=== PATIENT | male | born 2000 | race Caucasian/White ===

== ENCOUNTER 2022-02-16 09:57 | Inpatient (IN) ==
[2022-02-16 11:04] LABS: Appearance Urine Clear (Clear); Bilirubin Urine Negative (Negative); Blood Urine Negative (Negative); Color Urine Yellow; Glucose Urine UA Negative (Negative); Ketones Urine Negative (Negative); Leukocyte Esterase Urine Negative (Negative); Nitrite Urine Negative (Negative); Protein Urine Negative (Negative); Specific Gravity Urine >= 1.030 (1.000-1.030); Urobilinogen Urine Negative (Negative)
[2022-02-16 11:29] LABS: Amphetamines+Metham, Urine Neg (Neg); Barbiturates, Urine Neg (Neg); Benzodiazepine, Urine Neg (Neg); Cocaine, Urine Neg (Neg); MDMA (Ecstacy), Urine Neg (Neg); Methadone, Urine Neg (Neg); Opiate, Urine Neg (Neg); Phencyclidine, Urine Neg (Neg)
[2022-02-16 11:35] LABS: Basophils # (auto) 0.02 K/uL (0-0.2); Basophils % (auto) 0.3 %; Eosinophils % (auto) 1.5 %; Hematocrit (blood only) 43.8 % (42-52); Hemoglobin 15.4 g/dL (14.0-18.0); Immature Granulocytes # (auto) 0.03 K/uL (0.00-0.02); Immature Granulocytes % (auto) 0.4 %; Lymphocytes # (auto) 1.52 K/uL (1.2-3.4); Lymphocytes % (auto) 22.3 %; Mean Corpuscular Hemoglobin 31.1 pg (25-34); Mean Corpuscular Hgb Conc 35.2 g/dL (32-36); Mean Corpuscular Volume 88.5 fL (80-100); Mean Platelet Volume 10.7 fL (7.4-10.4); Monocytes # (auto) 0.65 K/uL (0.11-0.59); Monocytes % (auto) 9.5 %; Neutrophils # (auto) 4.51 K/uL (1.4-6.5); Platelet Count 199 K/uL (130-400); RDW Coefficient of Variation 12.7 % (11.5-14.5); RDW Standard Deviation 40.7 fL (36.4-46.3); Red Blood Count 4.95 M/uL (4.7-6.1); White Blood Count 6.83 K/uL (4.8-10.8)
[2022-02-16 11:54] LABS: Albumin Globulin Ratio 1.8 (0.9-2); Albumin Level 4.2 gm/dl (3.4-5.0); Bilirubin,Total 0.9 mg/dl (0.2-1.0); Est GFR (African American) 144.7 ml/min; Est GFR (Non-African American) 124.8 ml/min; Globulin 2.4 gm/dl (2.5-4.0); Potassium 3.5 mmol/L (3.5-5.1); Total Protein 6.6 gm/dl (6.0-8.3)
[2022-02-16 12:01] LABS: Acetaminophen < 3 ug/ml (10-30); Salicylate < 3.0 mg/dl (3.0-30)
--- NOTE | 2022-02-16 12:06 | Emergency Department Note ---
Impression & Plan Suicidal ideation ED Provider Note CHIEF COMPLAINT: Suicidal ideation HISTORY OF PRESENT ILLNESS: This 21-year-old male patient presents to the emergency department with complaints of suicidal ideation after being in a counseling appointment at [facility]. Patient apparently has been struggling for several months while at college. He states he has been having thoughts of jumping off of the balcony from his apartment and/or slicing his throat with a kitchen knife. He states about 1 week ago he stood over the drawer and contemplated the action, feeling "numb all over" but received a notification on his phone which caused a distraction. The patient then contacted his friend and spoke with him for over 2 hours. The next day the patient states he watched TV and playing video games for about 8 hours. He states he had to fight the urge to walk out onto the balcony and attempt to jump. His [facility] who then referred him to [facility] for further care. Today he was directed here with [employer], but voluntarily. She denies ever seeing a psychiatrist past. He has never been on any prescription medications. REVIEW OF SYSTEMS: A review of systems was performed with positives and pertinent negatives listed in the history of present illness. 10 systems were reviewed and are otherwise negative. ALLERGIES: see below MEDICATIONS: see below PMH: see below SOCIAL HISTORY: see below DDx: Mood disorder, infection, hypoglycemia, electrolyte abnormalities, cardiac sources, intracerebral event, toxicologic, trauma, neurologic, as well as other pathologies. PHYSICAL EXAM: Vital signs reviewed. General: Well-appearing 21 yo male, in no significant distress. HEENT: No scleral icterus, PERRLA, neck supple. Atraumatic. Cardiovascular: Regular rate and rhythm, no extra sounds. Pulmonary: Clear to auscultation bilaterally, normal work of breathing. Abdomen: Soft, nontender, nondistended, positive bowel sounds. Musculoskeletal: Atraumatic, no peripheral edema. Neurologic: Patient awake alert and oriented x 3 Psych: +SI with plan/- HI Skin: Warm, dry, no rash EMERGENCY DEPARTMENT COURSE/MDM: This patient was evaluated and medically c leared. He was referred to the mental health immigration case worker for psychiatric assessment. Patient was felt to be a danger to himself and was voluntary for psychiatric admission. He was accepted to [facility] for inpatient admission. DISPOSITION: Admission Past Med/Surg History Medical History (Updated 02/17/22 @ 08:59 by Fernanda Pizano MD) Patient denies medical problems Social History (Updated 02/16/22 @ 12:52 by Fernanda Pizano MD) Smoking Status: Never smoker Hx Alcohol Use: Yes Alcohol Intake Frequency: 2-4 x/Month Hx Substance Use: Yes Prescribed Medications: Marijuana Preferred Language: Serbian [employer] Required: No Beliefs That Will Affect Care: None Feels Safe at Home: Yes Assistive Devices: None Allergies Allergies Allergy/AdvReac Type Severity Reaction Status Date / Time No Known Allergies Allergy Unverified 02/16/22 10:36 Home Meds Home Medications Medication Instructions Recorded Confirmed No Known Home Medications 02/16/22 02/16/22 Results & Data (ED) Vital Signs Vital Signs - 24 hr 02/16/22 10:05 02/16/22 12:00 02/16/22 13:39 Temperature 36.7 C Temperature Source Temporal Artery Scan Pulse Rate 66 70 Pulse Rate [Right Finger] 74 Respiratory Rate 14 16 18 Respiratory Effort / Characteristics Non-Labored Respiratory Depth Normal Respiratory Pattern Regular Blood Pressure 115/71 Blood Pressure [Right Arm] 126/72 Blood Pressure Mean 85 Blood Pressure Mean [Right Arm] 90 Blood Pressure Position [Right Arm] Sitting Pulse Oximetry 97 95 99 Oxygen Delivery Method Room Air Room Air Sepsis New/Unexplained Change in Mental Status No Sepsis Action Taken by Nursing No Action Required Home Medications Current Medication List: was personally reviewed by me Laboratory Data Attestation: I reviewed the patient's lab results. Result diagrams: 02/16/22 11:15 02/16/22 11:15 Lab Results 02/16/22 02/16/22 02/16/22 Range/Units 10:22 10:22 10:22 WBC (4.8-10.8) K/uL RBC (4.7-6.1) M/uL Hgb (14.0-18.0) g/dL Hct (42-52) % MCV (80-100) fL MCH (25-34) pg MCHC (32-36) g/dL RDW Std Deviation (36.4-46.3) fL RDW Coeff of Harshil (11.5-14.5) % Plt Count (130-400) K/uL MPV (7.4-10.4) fL Immature Gran % (Auto) % Neut % (Auto) % Lymph % (Auto) % [place] % (Auto) % Eos % (Auto) % Baso % (Auto) % Neut # (Auto) (1.4-6.5) K/uL Lymph # (Auto) (1.2-3.4) K/uL [place] # (Auto) (0.11-0.59) K/uL Eos # (Auto) (0-0.5) K/uL Baso # (Auto) (0-0.2) K/uL Immature Gran # (Auto) (0.00-0.02) K/uL Sodium (136-145) mmol/L Potassium (3.5-5.1) mmol/L Chloride (98-107) mmol/L Carbon Dioxide (21-32) mmol/L Anion Gap (3-11) BUN (6-23) mg/dl Creatinine (0.6-1.4) mg/dl Est Cr Clr Drug Dosing ml/min Est GFR ( Amer) ml/min Est GFR (Non-Af Amer) ml/min BUN/Creatinine Ratio (10-20) Glucose (70-99(Fasting)) mg/dl Calcium (8.5-10.1) mg/dl Total Bilirubin (0.2-1.0) mg/dl AST (13-39) U/L ALT (7-52) U/L Alkaline Phosphatase (34-104) U/L Total Protein (6.0-8.3) gm/dl Albumin (3.4-5.0) gm/dl Globulin (2.5-4.0) gm/dl Albumin/Globulin Ratio (0.9-2) TSH (0.300-4.500) uIu/ml Urine Color Yellow Urine Appearance Clear (Clear) Urine pH 6.0 (4.5-7.5) Ur Specific Circle >= 1.030 (1.000-1.030) Urine Protein Negative (Negative) Urine Glucose (UA) Negative (Negative) Urine Ketones Negative (Negative) Urine Blood Negative (Negative) Urine Nitrite Negative (Negative) Urine Bilirubin Negative (Negative) Urine Urobilinogen Negative (Negative) Ur Leukocyte Esterase Negative (Negative) Salicylates (3.0-30) mg/dl Urine Opiates Screen Neg (Neg) Ur Methadone, Qual Neg (Neg) Acetaminophen (10-30) ug/ml Urine Barbiturates Neg (Neg) Ur Phencyclidine (PCP) Neg (Neg) U Amphetamin/Meth Scrn Neg (Neg) MDMA (Ecstasy) Screen Neg (Neg) U Benzodiazepines Scrn Neg (Neg) Ur Cocaine Metabolite Neg (Neg) U Marijuana (THC) Screen Neg (Neg) Ethyl Alcohol mg/dL (<10.0) mg/dl SARS-CoV-2, RNA, NAAT NEGATIVE (NEGATIVE) 02/16/22 02/16/22 02/16/22 Range/Units 11:15 11:15 11:15 WBC 6.83 (4.8-10.8) K/uL RBC 4.95 (4.7-6.1) M/uL Hgb 15.4 (14.0-18.0) g/dL Hct 43.8 (42-52) % MCV 88.5 (80-100) fL MCH 31.1 (25-34) pg MCHC 35.2 (32-36) g/dL RDW Std Deviation 40.7 (36.4-46.3) fL RDW Coeff of Harshil 12.7 (11.5-14.5) % Plt Count 199 (130-400) K/uL MPV 10.7 H (7.4-10.4) fL Immature Gran % (Auto) 0.4 % Neut % (Auto) 66.0 % Lymph % (Auto) 22.3 % [place] % (Auto) 9.5 % Eos % (Auto) 1.5 % Baso % (Auto) 0.3 % Neut # (Auto) 4.51 (1.4-6.5) K/uL Lymph # (Auto) 1.52 (1.2-3.4) K/uL [place] # (Auto) 0.65 H (0.11-0.59) K/uL Eos # (Auto) 0.10 (0-0.5) K/uL Baso # (Auto) 0.02 (0-0.2) K/uL Immature Gran # (Auto) 0.03 H (0.00-0.02) K/uL Sodium 140 (136-145) mmol/L Potassium 3.5 (3.5-5.1) mmol/L Chloride 106 (98-107) mmol/L Carbon Dioxide 28 (21-32) mmol/L Anion Gap 6 (3-11) BUN 12 (6-23) mg/dl Creatinine 0.86 (0.6-1.4) mg/dl Est Cr Clr Drug Dosing 137.0 ml/min Est GFR ( Amer) 144.7 ml/min Est GFR (Non-Af Amer) 124.8 ml/min BUN/Creatinine Ratio 14.0 (10-20) Glucose 82 (70-99(Fasting)) mg/dl Calcium 9.0 (8.5-10.1) mg/dl Total Bilirubin 0.9 (0.2-1.0) mg/dl AST 14 (13-39) U/L ALT 14 (7-52) U/L Alkaline Phosphatase 52 (34-104) U/L Total Protein 6.6 (6.0-8.3) gm/dl Albumin 4.2 (3.4-5.0) gm/dl Globulin 2.4 L (2.5-4.0) gm/dl Albumin/Globulin Ratio 1.8 (0.9-2) TSH 0.940 (0.300-4.500) uIu/ml Urine Color Urine Appearance (Clear) Urine pH (4.5-7.5) Ur Specific Circle (1.000-1.030) Urine Protein (Negative) Urine Glucose (UA) (Negative) Urine Ketones (Negative) Urine Blood (Negative) Urine Nitrite (Negative) Urine Bilirubin (Negative) Urine Urobilinogen (Negative) Ur Leukocyte Esterase (Negative) Salicylates (3.0-30) mg/dl Urine Opiates Screen (Neg) Ur Methadone, Qual (Neg) Acetaminophen (10-30) ug/ml Urine Barbiturates (Neg) Ur Phencyclidine (PCP) (Neg) U Amphetamin/Meth Scrn (Neg) MDMA (Ecstasy) Screen (Neg) U Benzodiazepines Scrn (Neg) Ur Cocaine Metabolite (Neg) U Marijuana (THC) Screen (Neg) Ethyl Alcohol mg/dL (<10.0) mg/dl SARS-CoV-2, RNA, NAAT (NEGATIVE) 02/16/22 02/16/22 Range/Units 11:15 11:15 WBC (4.8-10.8) K/uL RBC (4.7-6.1) M/uL Hgb (14.0-18.0) g/dL Hct (42-52) % MCV (80-100) fL MCH (25-34) pg MCHC (32-36) g/dL RDW Std Deviation (36.4-46.3) fL RDW Coeff of Harshil (11.5-14.5) % Plt Count (130-400) K/uL MPV (7.4-10.4) fL Immature Gran % (Auto) % Neut % (Auto) % Lymph % (Auto) % [place] % (Auto) % Eos % (Auto) % Baso % (Auto) % Neut # (Auto) (1.4-6.5) K/uL Lymph # (Auto) (1.2-3.4) K/uL [place] # (Auto) (0.11-0.59) K/uL Eos # (Auto) (0-0.5) K/uL Baso # (Auto) (0-0.2) K/uL Immature Gran # (Auto) (0.00-0.02) K/uL Sodium (136-145) mmol/L Potassium (3.5-5.1) mmol/L Chloride (98-107) mmol/L Carbon Dioxide (21-32) mmol/L Anion Gap (3-11) BUN (6-23) mg/dl Creatinine (0.6-1.4) mg/dl Est Cr Clr Drug Dosing ml/min Est GFR ( Amer) ml/min Est GFR (Non-Af Amer) ml/min BUN/Creatinine Ratio (10-20) Glucose (70-99(Fasting)) mg/dl Calcium (8.5-10.1) mg/dl Total Bilirubin (0.2-1.0) mg/dl AST (13-39) U/L ALT (7-52) U/L Alkaline Phosphatase (34-104) U/L Total Protein (6.0-8.3) gm/dl Albumin (3.4-5.0) gm/dl Globulin (2.5-4.0) gm/dl Albumin/Globulin Ratio (0.9-2) TSH (0.300-4.500) uIu/ml Urine Color Urine Appearance (Clear) Urine pH (4.5-7.5) Ur Specific Circle (1.000-1.030) Urine Protein (Negative) Urine Glucose (UA) (Negative) Urine Ketones (Negative) Urine Blood (Negative) Urine Nitrite (Negative) Urine Bilirubin (Negative) Urine Urobilinogen (Negative) Ur Leukocyte Esterase (Negative) Salicylates < 3.0 L (3.0-30) mg/dl Urine Opiates Screen (Neg) Ur Methadone, Qual (Neg) Acetaminophen < 3 L (10-30) ug/ml Urine Barbiturates (Neg) Ur Phencyclidine (PCP) (Neg) U Amphetamin/Meth Scrn (Neg) MDMA (Ecstasy) Screen (Neg) U Benzodiazepines Scrn (Neg) Ur Cocaine Metabolite (Neg) U Marijuana (THC) Screen (Neg) Ethyl Alcohol mg/dL < 10.0 (<10.0) mg/dl SARS-CoV-2, RNA, NAAT (NEGATIVE) Administered Medications Hydroxyzine HCl (Hydroxyzine Hcl 25 Mg Tab) 50 mg PO HSZ PRN PRN Reason: Insomnia Stop: 03/18/22 14:03 Last Admin: 02/17/22 00:10 Dose: 50 mg Documented by: [id number] Hydroxyzine HCl (Hydroxyzine Hcl 25 Mg Tab) 25 mg PO Q4H PRN PRN Reason: Anxiety Stop: 03/18/22 14:03 Last Admin: 02/16/22 16:51 Dose: 25 mg Documented by: [id number] Blood Pressure Blood Pressure Findings: Normal blood pressure Blood Pressure Disposition: Referred to patients primary care provider Discharge Plan Visit Data Chief Complaint: Mental Health Evaluation Stated Complaint: POLICE BROUGHT IN FOR PSYCH EVAL ED Provider: Fernanda Pizano Discharge Problem: Suicidal ideation Patient Disposition: Admitted As Inpatient Discharge Instructions Interventions: ED Discharge Assessment Last Done: 02/16/22 13:39
[2022-02-16] MEDS ORDERED: ACETAMINOPHEN 325 MG TAB PO PRN (14:04)
[2022-02-16] MEDS ORDERED: SODIUM CHLORIDE 0.65% NA SOLN 45 ML (OCEAN) PRN (14:04)
[2022-02-16] MEDS ORDERED: BISMUTH SUBSALICYLATE LIQD 236 ML PO PRN (14:04)
[2022-02-16] MEDS ORDERED: MAGNESIUM HYDROXIDE SUSP 30 ML UDC PO PRN (14:04)
[2022-02-16] MEDS ORDERED: ALUMINUM/MAGNESIUM SUSP 30 ML UDC PO PRN (14:04)
[2022-02-16] MEDS: hydrOXYzine HCl 25 MG TAB PO PRN (16:51)
[2022-02-17] MEDS: hydrOXYzine HCl 25 MG TAB PO PRN ×2 (00:10→22:12)
--- NOTE | 2022-02-17 08:34 | History & Physical ---
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 Diagnostically consistent with MDD with anxious features, GINA and social anxiety. Suspect irritability due to MDD with contribution from social anxiety leading to decreased self-esteem and more negative automatic thoughts related to peer interactions and perceptions of how others view him. The patient is deemed unstable and requires psychiatric hospitalization for diagnostic clarification, safety and stabilization, medication management and development of further coping skills. Discussed medication treatment options in detail. Discussed risks, benefits and alternatives. Patient would like to start and consented to sertraline for MDD and anxiety. Reviewed side effects including but not limited to: GI, IRIZARRY, sexual side effects, and counseled on black box warning of potential for emergence of or increased SI and need to let staff know should this occur or should they feel unsafe. Also discussed importance of seeking emergency care following discharge if this side effect occurs in the future. Tried Vistaril and was able to fall asleep after an hour and was able to stay asleep but feels something more sedated would be more beneficial. (1) Severe single episode of major depressive disorder with anxiety: (2) GINA (generalized anxiety disorder): (3) Social anxiety disorder: (4) Suicidal ideation: 02/17/22: The patient [facility] ([facility] unit) on q15 min checks (behavioral with suicide precautions) for safety. The patient will participate in group, recreational, and milieu therapies and will be offered additional individual and family sessions as clinically appropriate. -sertraline 25mg qd -trazodone 25mg qhs for insomnia Inventory Assets Strengths: supportive family, student Needs: outpatient supports, medication initiation, additional coping skills Risk Factors Assessment Acute risk is high given SI with plan prior to admission but feels safe in the hospital so doesn't require 1:1 and able to safety contract. MOst significant modifiable risk factors are treating mood symptoms of depression and anxiety. Male: Yes : Yes Do You Have Access To A Gun?: No Health Problems: No Mental Health Diagnoses: Yes Substance Use Disorders: No Previous Attempt: No Family History of Suicide: No Previous Psychiatric Hospitalization: No Hopelessness: Yes Smoker: No Protective Factors Assessment Employed: No Stable Relationships: Yes Supportive Family: Yes Psychiatric History Identifying Data ALEX ROA is a 21-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 Chief Complaint "I need to stabilize my thoughts". History of Present Illness Alex presents for admission for worsening depression and SI with plan of jumping from his apartment balcony or slicing his throat with a kitchen knife. Depression has been worsening over the last few months in the context of multiple psychosocial stressors including academic stress, recent breakup, and anxiety. He endorses depressive symptoms including numbness, decreased sleep, decreased appetite, hopelessness, helplessness, decreased motivation, decreased energy, decreased concentration and irritability. SI has been intensifying over the last two weeks to the point of almost acting on his plan to jump off the balcony yesterday and a few days prior almost cutting himself but was then deterred before picking up the knife from a text message from a friend. Apparently wrote a suicide note 2 weeks ago. SI occurs every day and can last the whole day or sometimes occurs intermittently lasting for only a few minutes or hours. Noted to ED psych field nurse case manager that he felt as though by suicide was "the only way forward". He sought help at [facility] yesterday who encouraged him to present to the ED. He also endorses a long history of anxiety which has worsened with his depression. Recalls depression "from my earliest memories" where "every good thought is accompanied by an extreme worst thought" and over the last few months the "extreme worst thoughts have been winning out". Thoughts tend to be "wishing the worst on people, wanting to ruin their good time" which he attributes to wanting to feel in control because he feels like he struggles with anger Notes he struggles to "move on" and get past things if people "give me a look or say something", "I think about it for months". Can get anxious in social settings. Psychiatric ROS notable for increased irritability/anger (wanting bad things to happen to people but denies HI), no history or current symptoms of everett, psychosis, eating disorder, denies SIB (but sometimes unintentionally scratches his body in the shower). Endorses periods of being defensive/"sensitive" to comments based on his behavior but denies any other PTSD symptoms. Past Psychiatric History Current Psychiatric Diagnosis: None Outpatient Services: none currently, never done therapy/no hx psychiatry Previous Psych Admissions: n/a Do You Have Access To A Gun?: No History of Previous Suicide Attempt: No Past Medication Trials: none Past Head Trauma/Neuro History History of Concussion/Seizure: Yes (concussion in 7th grade, hospitalized for 2 days, LOC for ~10 secs, fall) Allergies Allergy/AdvReac Type Severity Reaction Status Date / Time No Known Allergies Allergy Unverified 02/16/22 10:36 Home Medications Medication Instructions Recorded Confirmed Type No Known Home Medications 02/16/22 02/16/22 History Family History Family History of: Anxiety (sister) and Alcoholism/Drug Abuse (both paternal and maternal sides cousins, aunts/uncles and grandparents) Alcohol History Hx of Alcohol Use Over the Past 12 Months: Yes (once a week; 5 shots) AUDIT Total Score: 4 Drinking once per week, will consume about 4-5 shots over 2 hours; has 1 blackout per year; no academic/social/legal repercussions from drinking Smoking Use Have You Smoked or Used Tobacco Products in the Last 30 Days: No Smoking Status: Never smoker Substance History Hx of Prescription Med Misuse Over the Past 12 Months: No Hx of Over the Counter Med Misuse Over the Past 12 Months: No Hx of Inhalent Misuse Over the Past 12 Months: No Hx of Organic Substance Use Over the Past 12 Months: Yes (smokes marijuana every 4 months (approx)) Hx of Illegal Substances/Street Drug Use Over Past 12 Months: No Problems as a Result of Past Substance Use: None Identified Personal History Living Arrangements: Apartment (has two roommates ) Childhood: Raised in [place]. Parents are , has 2 older siblings (sister and brother). 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 [employer] Patient History Medical History Patient denies medical problems Social History Smoking Status: Never smoker Hx Alcohol Use: Yes Alcohol Intake Frequency: 2-4 x/Month Hx Substance Use: Yes Prescribed Medications: Marijuana Preferred Language: Icelandic Felt Finisher Required: No Beliefs That Will Affect Care: None Feels Safe at Home: Yes Assistive Devices: None Review of Systems Review of Systems: All systems reviewed & are unremarkable except as noted in HPI & below Physical Exam Psychiatric: Orientation: alert and oriented x 3 Apperance: appropriately dressed and appropriately groomed Eye Contact: + poor eye contact Motor Behavior: no abnormal motor movements Speech: normal rate/rhythm/volume of speech Affect: + flat affect Mood: + depressed mood and + anxious mood Thought Process: goal directed thought process Thought Content: reality based without delusions Suicidal Thoughts: denies suicidal plan and denies suicidal intent; + reports suicidal thoughts (feels safe in hospital, has been having intermit SI with plan prior to adm) Homicidal Thoughts: denies homicidal tho ughts Hallucinations: no auditory hallucinations and no visual hallucinations Cognition: recent memory grossly intact, remote memory grossly intact, attention grossly intact and language grossly intact Estimated Intelligence: consistent with education level Insight: + fair insight Judgement: + fair judgement Vital Signs (Past 24 Hours): Last Vital Signs Temp 36.3 C L 02/17/22 06:39 Pulse 64 02/17/22 06:40 Resp 16 02/17/22 06:39 BP 103/66 02/17/22 06:40 Pulse Ox 99 02/16/22 13:39 Exam Statement: A physical exam was performed in the ED by Dr. Pizano for the purposes of medical clearance. I accept that physical as correct and adequate for the purposes of the inpatient physical exam. Results & Data ([facility]) Laboratory Results Laboratory Results - last 24 hr 02/16/22 02/16/22 02/16/22 10:22 10:22 10:22 WBC RBC Hgb Hct MCV MCH MCHC RDW Std Deviation RDW Coeff of Harshil Plt Count MPV Immature Gran % (Auto) Neut % (Auto) Lymph % (Auto) [place] % (Auto) Eos % (Auto) Baso % (Auto) Neut # (Auto) Lymph # (Auto) [place] # (Auto) Eos # (Auto) Baso # (Auto) Immature Gran # (Auto) Sodium Potassium Chloride Carbon Dioxide Anion Gap BUN Creatinine Est Cr Clr Drug Dosing Est GFR ( Amer) Est GFR (Non-Af Amer) BUN/Creatinine Ratio Glucose Calcium Total Bilirubin AST ALT Alkaline Phosphatase Total Protein Albumin Globulin Albumin/Globulin Ratio TSH Urine Color Yellow Urine Appearance Clear Urine pH 6.0 Ur Specific [place]ancock >= 1.030 Urine Protein Negative Urine Glucose (UA) Negative Urine Ketones Negative Urine Blood Negative Urine Nitrite Negative Urine Bilirubin Negative Urine Urobilinogen Negative Ur Leukocyte Esterase Negative Salicylates Urine Opiates Screen Neg Ur Methadone, Qual Neg Acetaminophen Urine Barbiturates Neg Ur Phencyclidine (PCP) Neg U Amphetamin/Meth Scrn Neg MDMA (Ecstasy) Screen Neg U Benzodiazepines Scrn Neg Ur Cocaine Metabolite Neg U Marijuana (THC) Screen Neg Ethyl Alcohol mg/dL SARS-CoV-2, RNA, NAAT NEGATIVE 02/16/22 02/16/22 02/16/22 11:15 11:15 11:15 WBC 6.83 RBC 4.95 Hgb 15.4 Hct 43.8 MCV 88.5 MCH 31.1 MCHC 35.2 RDW Std Deviation 40.7 RDW Coeff of Harshil 12.7 Plt Count 199 MPV 10.7 H Immature Gran % (Auto) 0.4 Neut % (Auto) 66.0 Lymph % (Auto) 22.3 [place] % (Auto) 9.5 Eos % (Auto) 1.5 Baso % (Auto) 0.3 Neut # (Auto) 4.51 Lymph # (Auto) 1.52 [place] # (Auto) 0.65 H Eos # (Auto) 0.10 Baso # (Auto) 0.02 Immature Gran # (Auto) 0.03 H Sodium 140 Potassium 3.5 Chloride 106 Carbon Dioxide 28 Anion Gap 6 BUN 12 Creatinine 0.86 Est Cr Clr Drug Dosing 137.0 Est GFR ( Amer) 144.7 Est GFR (Non-Af Amer) 124.8 BUN/Creatinine Ratio 14.0 Glucose 82 Calcium 9.0 Total Bilirubin 0.9 AST 14 ALT 14 Alkaline Phosphatase 52 Total Protein 6.6 Albumin 4.2 Globulin 2.4 L Albumin/Globulin Ratio 1.8 TSH 0.940 Urine Color Urine Appearance Urine pH Ur Specific [place] Urine Protein Urine Glucose (UA) Urine Ketones Urine Blood Urine Nitrite Urine Bilirubin Urine Urobilinogen Ur Leukocyte Esterase Salicylates Urine Opiates Screen Ur Methadone, Qual Acetaminophen Urine Barbiturates Ur Phencyclidine (PCP) U Amphetamin/Meth Scrn MDMA (Ecstasy) Screen U Benzodiazepines Scrn Ur Cocaine Metabolite U Marijuana (THC) Screen Ethyl Alcohol mg/dL SARS-CoV-2, RNA, NAAT 02/16/22 02/16/22 11:15 11:15 WBC RBC Hgb Hct MCV MCH MCHC RDW Std Deviation RDW Coeff of Harshil Plt Count MPV Immature Gran % (Auto) Neut % (Auto) Lymph % (Auto) [place] % (Auto) Eos % (Auto) Baso % (Auto) Neut # (Auto) Lymph # (Auto) [place] # (Auto) Eos # (Auto) Baso # (Auto) Immature Gran # (Auto) Sodium Potassium Chloride Carbon Dioxide Anion Gap BUN Creatinine Est Cr Clr Drug Dosing Est GFR ( Amer) Est GFR (Non-Af Amer) BUN/Creatinine Ratio Glucose Calcium Total Bilirubin AST ALT Alkaline Phosphatase Total Protein Albumin Globulin Albumin/Globulin Ratio TSH Urine Color Urine Appearance Urine pH Ur Specific [place] Urine Protein Urine Glucose (UA) Urine Ketones Urine Blood Urine Nitrite Urine Bilirubin Urine Urobilinogen Ur Leukocyte Esterase Salicylates < 3.0 L Urine Opiates Screen Ur Methadone, Qual Acetaminophen < 3 L Urine Barbiturates Ur Phencyclidine (PCP) U Amphetamin/Meth Scrn MDMA (Ecstasy) Screen U Benzodiazepines Scrn Ur Cocaine Metabolite U Marijuana (THC) Screen Ethyl Alcohol mg/dL < 10.0 SARS-CoV-2, RNA, NAAT Current Inpatient Medications Current Inpatient Medications: Current Inpatient Medications Acetaminophen (Acetaminophen 325 Mg Tab) 650 mg PO Q4H PRN PRN Reason: Headache or Minor Fever Stop: 03/18/22 14:03 Al Hydrox/Mg Hydrox/Simethicone (Aluminum/Magnesium Susp 30 Ml Udc) 30 ml PO Q4H PRN PRN Reason: GI Upset Stop: 03/18/22 14:03 Bismuth Subsalicylate (Bismuth Subsalicylate Liqd 236 Ml) 15 ml PO PRN PRN PRN Reason: Loose Stool Stop: 03/18/22 14:03 Hydroxyzine HCl (Hydroxyzine Hcl 25 Mg Tab) 50 mg PO HSZ PRN PRN Reason: Insomnia Stop: 03/18/22 14:03 Last Admin: 02/17/22 00:10 Dose: 50 mg Documented by: Hydroxyzine HCl (Hydroxyzine Hcl 25 Mg Tab) 25 mg PO Q4H PRN PRN Reason: Anxiety Stop: 03/18/22 14:03 Last Admin: 02/16/22 16:51 Dose: 25 mg Documented by: Magnesium Hydroxide (Magnesium Hydroxide Susp 30 Ml Udc) 30 ml PO DAILY PRN PRN Reason: Constipation Stop: 03/18/22 14:03 Sodium Chloride (Sodium Chloride 0.65% Na Soln 45 Ml ([place])) 1 - 2 sprays NA PRN PRN PRN Reason: Nasal Dryness/Congestion Stop: 03/18/22 14:03
[2022-02-17] MEDS: SERTRALINE HCL 50 MG TABLET PO SCH (12:13)
[2022-02-17] MEDS ORDERED: traZODone HCL 50 MG TAB PO SCH (22:00)
--- NOTE | 2022-02-18 08:38 | Psychiatric Progress Note ---
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 Diagnostically consistent with MDD with anxious features, GINA and social anxiety. Suspect irritability due to MDD with contribution from social anxiety leading to decreased self-esteem and more negative automatic thoughts related to peer interactions and perceptions of how others view him. The patient is deemed unstable and requires psychiatric hospitalization for diagnostic clarification, safety and stabilization, medication management and development of further coping skills. Acute risk is high given SI with plan prior to admission but feels safe in the hospital and when he has SI in the hospital it is without plan or intent so doesn't require 1:1 and able to safety contract. Most significant modifiable risk factors are treating mood symptoms of depression and anxiety 02/18/22: Tolerating sertraline initiation. Continues to be depressed with intermittent SI. Increase trazodone to further target insomnia. Had family meeting with his mother. (1) Severe single episode of major depressive disorder with anxiety: (2) GINA (generalized anxiety disorder): (3) Social anxiety disorder: (4) Suicidal ideation: 02/18/22: Increase trazodone to 50mg qhs. Continue sertraline 25mg qd. F amily meeting held. 02/17/22: The patient was admitted to the [facility] ([facility] unit) on q15 min checks (behavioral with suicide precautions) for safety. The patient will participate in group, recreational, and milieu therapies and will be offered additional individual and family sessions as clinically appropriate. -sertraline 25mg qd -trazodone 25mg qhs for insomnia Inventory Assets Strengths: supportive family, student Needs: outpatient supports, medication initiation, additional coping skills Risk Factors Assessment Male: Yes : Yes Do You Have Access To A Gun?: No Health Problems: No Mental Health Diagnoses: Yes Substance Use Disorders: No Previous Attempt: No Family History of Suicide: No Previous Psychiatric Hospitalization: No Hopelessness: Yes Smoker: No Protective Factors Assessment Employed: No Stable Relationships: Yes Supportive Family: Yes Interval History Identifying Information ALEX ROA is a 21-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 Chief Complaint "I'm ok". Review of Systems Sleep Information Total Hours of Sleep: 5.5 Meal Information Percent Meal Consumed - Breakfast: 80 Percent Meal Consumed - Lunch: 100 Percent Meal Consumed - Dinner: 100 Subjective Subjective Patient was seen & assessed and interval progress reviewed with treatment team nursing and social work. Attending groups. Inquired about 72 hour notice but did not sign anything, noted that he feels he can't relate well to his peers. Received Vistaril prn. Had family meeting with his mother this morning. Feels his mood is "ok", notes that today SI "isn't as bad". Had some SI last night that lasted for about 1 hour which he dealt with by telling the thoughts "go away" which helped and then he was able to fall asleep. Limited benefit from trazodone but no side effects, he'd like to increase the dose tonight. No side effects from sertraline. Discussed additional coping skills and ways to challenge unhelpful thoughts related to SI and anxiety. Physical Exam Psychiatric Orientation: alert and oriented x 3 Apperance: appropriately dressed and appropriately groomed Eye Contact: + fair eye contact Motor Behavior: no abnormal motor movements Speech: normal rate/rhythm/volume of speech (soft) Affect: + flat affect Mood: + depressed mood and + anxious mood Thought Process: goal directed thought process Thought Content: reality based without delusions Suicidal Thoughts: denies suicidal plan and denies suicidal intent; + reports suicidal thoughts (feels safe in hospital, has been having intermittent SI ) Homicidal Thoughts: denies homicidal thoughts Hallucinations: no auditory hallucinations and no visual hallucinations Cognition: recent memory grossly intact, remote memory grossly intact, attention grossly intact and language grossly intact Estimated Intelligence: consistent with education level Insight: + fair insight Judgement: + fair judgement Vital Signs (Past 24 Hours) Last Vital Signs Temp 36.6 C 02/18/22 06:47 Pulse 73 02/18/22 06:48 Resp 14 02/18/22 06:47 BP 94/58 L 02/18/22 06:48 Pulse Ox 99 02/16/22 13:39 Results & Data ([facility]) Current Inpatient Medications Current Inpatient Medications: Current Inpatient Medications Acetaminophen (Acetaminophen 325 Mg Tab) 650 mg PO Q4H PRN PRN Reason: Headache or Minor Fever Stop: 03/18/22 14:03 Al Hydrox/Mg Hydrox/Simethicone (Aluminum/Magnesium Susp 30 Ml Udc) 30 ml PO Q4H PRN PRN Reason: GI Upset Stop: 03/18/22 14:03 Bismuth Subsalicylate (Bismuth Subsalicylate Liqd 236 Ml) 15 ml PO PRN PRN PRN Reason: Loose Stool Stop: 03/18/22 14:03 Hydroxyzine HCl (Hydroxyzine Hcl 25 Mg Tab) 50 mg PO HSZ PRN PRN Reason: Insomnia Stop: 03/18/22 14:03 Last Admin: 02/17/22 22:12 Dose: 50 mg Documented by: Hydroxyzine HCl (Hydroxyzine Hcl 25 Mg Tab) 25 mg PO Q4H PRN PRN Reason: Anxiety Stop: 03/18/22 14:03 Last Admin: 02/16/22 16:51 Dose: 25 mg Documented by: Magnesium Hydroxide (Magnesium Hydroxide Susp 30 Ml Udc) 30 ml PO DAILY PRN PRN Reason: Constipation Stop: 03/18/22 14:03 Sertraline HCl (Sertraline Hcl 50 Mg Tablet) 25 mg PO QAM LELO Stop: 03/19/22 10:59 Last Admin: 02/17/22 12:13 Dose: 25 mg Documented by: Sodium Chloride (Sodium Chloride 0.65% Na Soln 45 Ml ([place])) 1 - 2 sprays NA PRN PRN PRN Reason: Nasal Dryness/Congestion Stop: 03/18/22 14:03 Trazodone HCl (Trazodone Hcl 50 Mg Tab) 25 mg PO HS LELO Stop: 03/19/22 21:59 Last Admin: 02/17/22 22:12 Dose: 25 mg Documented by: Mental Health & Subst Abuse Tx Therapist Name of Therapist: None Top Frame Fitter Name of Top Frame Fitter: None Post Discharge Appointments Primary Care Physician Name Of Family Doctor: Anupama
[2022-02-18] MEDS: SERTRALINE HCL 50 MG TABLET PO SCH (09:59)
[2022-02-18] MEDS: hydrOXYzine HCl 25 MG TAB PO PRN (17:31)
[2022-02-18] MEDS ORDERED: traZODone HCL 50 MG TAB PO SCH (22:00)
--- NOTE | 2022-02-19 08:31 | Psychiatric Progress Note ---
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 Diagnostically consistent with MDD with anxious features, GINA and social anxiety. Suspect irritability due to MDD with contribution from social anxiety leading to decreased self-esteem and more negative automatic thoughts related to peer interactions and perceptions of how others view him. The patient is deemed unstable and requires psychiatric hospitalization for diagnostic clarification, safety and stabilization, medication management and development of further coping skills. Acute risk is high given SI with plan prior to admission but feels safe in the hospital and when he has SI in the hospital it is without plan or intent so doesn't require 1:1 and able to safety contract. Most significant modifiable risk factors are treating mood symptoms of depression and anxiety 02/19/22: Increase trazodone for further insomnia tx and increase sertraline as well tolerated so far and to reach effective dose and further offer benefit for mood and anxiety. Continues to be depressed with intermittent SI. Reviewed CBT skills and coping strategies for SI and anxious thoughts. (1) Severe single episode of major depressive disorder with anxiety: (2) GINA (generalized anxiety disorder): (3) Social anxiety disorder: (4) Suicidal ideation: 02/19/22: Increase trazodone to 100mg qhs. Increase sertraline to 50mg qd. 02/18/22: Increase trazodone to 50mg qhs. Continue sertraline 25mg qd. Family meeting held. 02/17/22: The patient was admitted to the [facility]) on q15 min checks (behavioral with suicide precautions) for safety. The patient will participate in group, recreational, and milieu therapies and will be offered additional individual and family sessions as clinically appropriate. -sertraline 25mg qd -trazodone 25mg qhs for insomnia Inventory Assets Strengths: supportive family, student Needs: outpatient supports, medication initiation, additional coping skills Risk Factors Assessment Male: Yes : Yes Do You Have Access To A Gun?: No Health Problems: No Mental Health Diagnoses: Yes Substance Use Disorders: No Previous Attempt: No Family History of Suicide: No Previous Psychiatric Hospitalization: No Hopelessness: Yes Smoker: No Protective Factors Assessment Employed: No Stable Relationships: Yes Supportive Family: Yes Interval History Identifying Information ALEX ROA is a 21-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 Chief Complaint "I'm ok". Review of Systems Sleep Information Total Hours of Sleep: 7.5 Meal Information Percent Meal Consumed - Breakfast: 75 Percent Meal Consumed - Lunch: 100 Percent Meal Consumed - Dinner: 75 Subjective Subjective Patient was seen & assessed and interval progress reviewed with treatment team nursing and social work. Engaged with staff and went to groups last night. Still having some ruminative thoughts. Feeling more hopeful. Used prn Vistaril. Reports "ok" mood today. Still took awhile to fall asleep last night but no awakenings overnight. No side effects from trazodone or sertraline. Would like to increase sertraline and trazodone doses. Notes he sometimes wakes up with SI due to feeling anxious. He feels this is improving since being in the hospital. Reviewed some of the automatic thoughts he has which contribute to this such as thinking that he "should be going to parties more" and "shouldn't be in the hospital". Reviewed strategies to help challenge these thoughts and substitute more helpful thoughts to feel better. Physical Exam Psychiatric Orientation: alert and oriented x 3 Apperance: appropriately dressed and appropriately groomed Eye Contact: + fair eye contact Motor Behavior: no abnormal motor movements Speech: normal rate/rhythm/volume of speech (soft) Affect: + flat affect Mood: + depressed mood and + anxious mood Thought Process: goal directed thought process Thought Content: reality based without delusions Suicidal Thoughts: denies suicidal plan and denies suicidal intent; + reports suicidal thoughts (feels safe in hospital, has been having intermittent SI ) Homicidal Thoughts: denies homicidal thoughts Hallucinations: no auditory hallucinations and no visual hallucinations Cognition: recent memory grossly intact, remote memory grossly intact, attention grossly intact and language grossly intact Estimated Intelligence: consistent with education level Insight: + fair insight Judgement: + fair judgement Vital Signs (Past 24 Hours) Last Vital Signs Temp 36.2 C L 02/19/22 06:31 Pulse 80 02/19/22 06:32 Resp 16 02/19/22 06:31 BP 118/69 02/19/22 06:32 Pulse Ox 99 02/16/22 13:39 Results & Data ([facility]) Current Inpatient Medications Current Inpatient Medications: Current Inpatient Medications Acetaminophen (Acetaminophen 325 Mg Tab) 650 mg PO Q4H PRN PRN Reason: Headache or Minor Fever Stop: 03/18/22 14:03 Al Hydrox/Mg Hydrox/Simethicone (Aluminum/Magnesium Susp 30 Ml Udc) 30 ml PO Q4H PRN PRN Reason: GI Upset Stop: 03/18/22 14:03 Bismuth Subsalicylate (Bismuth Subsalicylate Liqd 236 Ml) 15 ml PO PRN PRN PRN Reason: Loose Stool Stop: 03/18/22 14:03 Hydroxyzine HCl (Hydroxyzine Hcl 25 Mg Tab) 50 mg PO HSZ PRN PRN Reason: Insomnia Stop: 03/18/22 14:03 Last Admin: 02/17/22 22:12 Dose: 50 mg Documented by: Hydroxyzine HCl (Hydroxyzine Hcl 25 Mg Tab) 25 mg PO Q4H PRN PRN Reason: Anxiety Stop: 03/18/22 14:03 Last Admin: 02/18/22 17:31 Dose: 25 mg Documented by: Magnesium Hydroxide (Magnesium Hydroxide Susp 30 Ml Udc) 30 ml PO DAILY PRN PRN Reason: Constipation Stop: 03/18/22 14:03 Sertraline HCl (Sertraline Hcl 50 Mg Tablet) 25 mg PO QAM LELO Stop: 03/19/22 10:59 Last Admin: 02/18/22 09:59 Dose: 25 mg Documented by: Sodium Chloride (Sodium Chloride 0.65% Na Soln 45 Ml ([place])) 1 - 2 sprays NA PRN PRN PRN Reason: Nasal Dryness/Congestion Stop: 03/18/22 14:03 Trazodone HCl (Trazodone Hcl 50 Mg Tab) 50 mg PO HS LELO Stop: 03/20/22 21:59 Last Admin: 02/18/22 21:55 Dose: 50 mg Documented by: Mental Health & Subst Abuse Tx Psychiatrist Name of Psychiatrist: PCP will manage medication Psychiatrist's Date of Appointment with Psychiatrist: 03/10/22 Time of Appointment with Psychiatrist: 4:30pm Psychiatric Appointment Comment: [address] [place] [id number] Therapist Name of Therapist: None Loft Rigger Name of Loft Rigger: None Post Discharge Appointments Primary Care Physician Name Of Family Doctor: Dr. Herr (will be seeing Tasneem for this visit) Primary Care Date of Appointment with PCP: 03/10/22 Time of Appointment with PCP: 4:30pm Provider Appointment Comment: [address] [place] [id number]
[2022-02-19] MEDS: SERTRALINE HCL 50 MG TABLET PO SCH (10:04)
[2022-02-19] MEDS ORDERED: traZODone HCL 100 MG TAB PO SCH (22:00)
--- NOTE | 2022-02-20 08:29 | Psychiatric Progress Note ---
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 Diagnostically consistent with MDD with anxious features, GINA and social anxiety. Suspect irritability due to MDD with contribution from social anxiety leading to decreased self-esteem and more negative automatic thoughts related to peer interactions and perceptions of how others view him. The patient is deemed unstable and requires psychiatric hospitalization for diagnostic clarification, safety and stabilization, medication management and development of further coping skills. Acute risk is moderate given SI with plan prior to admission but feels safe in the hospital and when he has SI in the hospital it is now only passive SI l asting for a few minutes so doesn't require 1:1 and able to safety contract. Most significant modifiable risk factors are treating mood symptoms of depression and anxiety 02/20/22: Stop trazodone and start mirtazapine for sleep onset insomnia. Continue with sertraline. Working on CBT skills and safety planning. Phone meeting with roommate today to discuss safety planning and ways to support him after discharge. He consents to mirtazapine, reviewed side effects including but not limited to black box warning re: SI, fatigue, dizziness, increased appetite. (1) Severe single episode of major depressive disorder with anxiety: (2) GINA (generalized anxiety disorder): (3) Social anxiety disorder: (4) Suicidal ideation: 02/20/22: Stop trazodone, start mirtazapine 15mg qhs. c/w sertraline 50mg qd. 02/19/22: Increase trazodone to 100mg qhs. Increase sertraline to 50mg qd. 02/18/22: Increase trazodone to 50mg qhs. Continue sertraline 25mg qd. Family meeting held. 02/17/22: The patient was admitted to the [facility] ([facility]) on q15 min checks (behavioral with suicide precautions) for safety. The patient will participate in group, recreational, and milieu therapies and will be offered additional individual and family sessions as clinically appropriate. -sertraline 25mg qd -trazodone 25mg qhs for insomnia Inventory Assets Strengths: supportive family, student Needs: outpatient supports, medication initiation, additional coping skills Risk Factors Assessment Male: Yes : Yes Do You Have Access To A Gun?: No Health Problems: No Mental Health Diagnoses: Yes Substance Use Disorders: No Previous Attempt: No Family History of Suicide: No Previous Psychiatric Hospitalization: No Hopelessness: Yes Smoker: No Protective Factors Assessment Employed: No Stable Relationships: Yes Supportive Family: Yes Interval History Identifying Information ALEX ROA is 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 Chief Complaint "I'm doing a lot better". Review of Systems Sleep Information Total Hours of Sleep: 6 Sleep Comments: pt given trazodone per rn. pt on q-15 minute checks Meal Information Percent Meal Consumed - Breakfast: 40 Percent Meal Consumed - Lunch: 90 Percent Meal Consumed - Dinner: 100 Subjective Subjective Patient was seen & assessed and interval progress reviewed with treatment team nursing and social work. Slept well once asleep but still struggling with significant insomnia, higher dose of trazodone didn't help with this. Still waking up with periods of SI, passive without intent or plan, which he attributes to anxiety in the morning. Discussed ways he can cope with this and what he would do if thoughts intensified. He feels they have improved significantly from prior to admission and feels he has more ways to cope with them. Notes that if these thoughts worsened outside of the hospital he would call the suicide crisis line, call his family or call his friends. Reviewed that he feels he will be able to cope with these better outside of the hospital where he can put on the mets highlights in the morning. Once he's out of bed he states that SI resolves as soon as he talks to someone or gets moving. Reviewed things to be aware of re: SSRI should SI intensify and what to do re: seeking emergent care if he feels unsafe or if thoughts worsen. He is pleased the intensity of his SI has improved in the hospital as well as noticing that his energy is improving and he feels better able to talk and socialize with others without an increase in anxiety. He remains hopeful of discharging tomorrow, discussed that we will re-evaluate this in the morning. No side effects from higher dose of sertraline. He would like to switch from trazodone to mirtazapine to see if this helps more with sleep onset insomnia and morning anxiety. Physical Exam Psychiatric Orientation: alert and oriented x 3 Apperance: appropriately dressed and appropriately groomed Eye Contact: good eye contact Motor Behavior: no abnormal motor movements Speech: normal rate/rhythm/volume of speech (soft) Affect: euthymic affect Mood: + depressed mood and + anxious mood Thought Process: goal directed thought process Thought Content: reality based without delusions Suicidal Thoughts: denies suicidal plan and denies suicidal intent; + reports suicidal thoughts (feels safe in hospital, passive SI for a few minutes in the morning) Homicidal Thoughts: denies homicidal thoughts Hallucinations: no auditory hallucinations and no visual hallucinations Cognition: recent memory grossly intact, remote memory grossly intact, attention grossly intact and language grossly intact Estimated Intelligence: consistent with education level Insight: + fair insight Judgement: + fair judgement Vital Signs (Past 24 Hours) Last Vital Signs Temp 36.3 C L 02/20/22 06:36 Pulse 76 02/20/22 06:37 Resp 16 02/20/22 06:36 BP 115/64 02/20/22 06:37 Pulse Ox 99 02/16/22 13:39 Results & Data ([facility]) Current Inpatient Medications Current Inpatient Medications: Current Inpatient Medications Acetaminophen (Acetaminophen 325 Mg Tab) 650 mg PO Q4H PRN PRN Reason: Headache or Minor Fever Stop: 03/18/22 14:03 Al Hydrox/Mg Hydrox/Simethicone (Aluminum/Magnesium Susp 30 Ml Udc) 30 ml PO Q4H PRN PRN Reason: GI Upset Stop: 03/18/22 14:03 Bismuth Subsalicylate (Bismuth Subsalicylate Liqd 236 Ml) 15 ml PO PRN PRN PRN Reason: Loose Stool Stop: 03/18/22 14:03 Hydroxyzine HCl (Hydroxyzine Hcl 25 Mg Tab) 50 mg PO HSZ PRN PRN Reason: Insomnia Stop: 03/18/22 14:03 Last Admin: 02/17/22 22:12 Dose: 50 mg Documented by: Hydroxyzine HCl (Hydroxyzine Hcl 25 Mg Tab) 25 mg PO Q4H PRN PRN Reason: Anxiety Stop: 03/18/22 14:03 Last Admin: 02/18/22 17:31 Dose: 25 mg Documented by: Magnesium Hydroxide (Magnesium Hydroxide Susp 30 Ml Udc) 30 ml PO DAILY PRN PRN Reason: Constipation Stop: 03/18/22 14:03 Sertraline HCl (Sertraline Hcl 50 Mg Tablet) 50 mg PO QAM LELO Stop: 03/22/22 08:59 Sodium Chloride (Sodium Chloride 0.65% Na Soln 45 Ml ([place])) 1 - 2 sprays NA PRN PRN PRN Reason: Nasal Dryness/Congestion Stop: 03/18/22 14:03 Trazodone HCl (Trazodone Hcl 100 Mg Tab) 100 mg PO HS LELO Stop: 03/21/22 21:59 Last Admin: 02/19/22 22:47 Dose: 100 mg Documented by: Mental Health & Subst Abuse Tx Psychiatrist Name of Psychiatrist: PCP will manage medication Psychiatrist's Date of Appointment with Psychiatrist: 03/10/22 Time of Appointment with Psychiatrist: 4:30pm Psychiatric Appointment Comment: [address] [place] [phone] Therapist Name of Therapist: None Rotary Drier Operator Name of Rotary Drier Operator: None Post Discharge Appointments Primary Care Physician Name Of Family Doctor: Dr. Herr (will be seeing Tasneem for this visit) Primary Care Date of Appointment with PCP: 03/10/22 Time of Appointment with PCP: 4:30pm Provider Appointment Comment: [address] [place] [phone]
[2022-02-20] MEDS: SERTRALINE HCL 50 MG TABLET PO SCH (09:51)
[2022-02-20] MEDS ORDERED: MIRTAZAPINE TAB 15 MG TAB PO SCH (22:00)
[2022-02-21] MEDS: SERTRALINE HCL 50 MG TABLET PO SCH (11:18)
--- NOTE | 2022-02-21 12:04 | Discharge Summary ---
Date of Service February 21, 2022 History of Present Illness Alfredo presents for admission for worsening depression and SI with plan of jumping from his apartment balcony or slicing his throat with a kitchen knife. Depression has been worsening over the last few months in the context of multiple psychosocial stressors including academic stress, recent breakup, and anxiety. He endorses depressive symptoms including numbness, decreased sleep, decreased appetite, hopelessness, helplessness, decreased motivation, decreased energy, decreased concentration and irritability. SI has been intensifying over the last two weeks to the point of almost acting on his plan to jump off the balcony yesterday and a few days prior almost cutting himself but was then deterred before picking up the knife from a text message from a friend. Apparently wrote a suicide note 2 weeks ago. SI occurs every day and can last the whole day or sometimes occurs intermittently lasting for only a few minutes or hours. Noted to ED psych manager case that he felt as though by suicide was "the only way forward". He sought help at [facility] yesterday who encouraged him to present to the ED. He also endorses a long history of anxiety which has worsened with his depression. Recalls depression "from my earliest memories" where "every good thought is accompanied by an extreme worst thought" and over the last few months the "extreme worst thoughts have been winning out". Thoughts tend to be "wishing the worst on people, wanting to ruin their good time" which he attributes to wanting to feel in control because he feels like he struggles with anger Notes he struggles to "move on" and get past things if people "give me a look or say something", "I think about it for months". Can get anxious in social settings. Psychiatric ROS notable for increased irritability/anger (wanting bad things to happen to people but denies HI), no history or current symptoms of everett, psychosis, eating disorder, denies SIB (but sometimes unintentionally scratches his body in the shower). Endorses periods of being defensive/"sensitive" to comments based on his behavior but denies any other PTSD symptoms. Physical Exam Vital Signs (Past 24 Hours) Last Vital Signs Temp 36.4 C L 02/21/22 06:37 Pulse 75 02/21/22 06:38 Resp 16 02/21/22 06:37 BP 116/70 02/21/22 06:38 Pulse Ox 99 02/16/22 13:39 See admission H&P and DOD summary. Principal Diagnosis Major Depressive Disorder with anxious distress Psychiatric Data See daily stay summary. In short, patient was engaged with the social/therapeutic milieu of the unit, safety was maintained and the patient was cooperative with care. Medication changes included initiation of mirtazapine 15 mg qhs and sertraline 50mg qd and they tolerated this well. If mirtazapine becomes too sedating as depression improves discussed option for Alfredo to take 1/2 tab for dose of 7.5 mg qhs. In future sertraline can be further titrated to max dose of 200mg qd if needed if depression or anxiety worsen. A family session was held and safety plan was completed prior to discharge. In the days leading up to discharge he consistently denied any active SI. He continued to have a few minutes of passive SI in the morning on awakening but this reduced in frequency and intensity during his stay. He did not feel he needed to stay in the hospital until this resolved noting that it has been chronic for many years and he feels these passive thoughts are actually helpful because "they serve to help me get out of bed and get going" and he denies any thoughts of plan or intent and feels able to manage the thoughts and that they have improved with hospitalization and go away as soon as he gets out of bed. Discussed reasons to seek increased support or crisis services or return to ED if thoughts became active or if he felt unsafe or if they worsen. He notes that his mood has improved significantly and that "I no longer feel like I have the weight of the world on me". He actively and insightfully participated in safety planning and in discussions about ways to seek support and recognizing warning signs and utilizing coping skills. Reviewed mobile apps that could be used for additional ways to have their safety plan and contacts easily available should thoughts of SI re-emerge in the future. Reviewed importance of seeking emergency care should SI intensify, worsen or should they feel unsafe in the future which they agree to do. On the day of discharge he stated his mood was "good" and remained future-oriented including seeing his father who is picking him up, watching the [employer] baseball double header this evening, finishing his academic semester, going on a trip to [facility] with his family in March and engaging in aftercare appointments for therapy and [employer] student care and advocacy. Day of Discharge Assessment Today the patient voices readiness for discharge. They note improvement in mood and anxiety. They deny thoughts of harm to self or others. Thoughts are organized and they are clinically improved from admission. There is no evidence of psychosis. They improved in the hospital with support and medication adjustments. They agree to take medications as prescribed and keep follow-up appointments. At the time of the discharge they are deemed to be stable and appropriate for outpatient level of care. They are not deemed to be at imminent risk of harm to self or others. They are aware of emergency and crisis services. Knows to call 911 or go to nearest emergency care center if in a crisis which cannot be handled as an outpatient. Transition of Care Transition Of Care Record: was reviewed with the patient Advance Directives Advance Directives Information Provided: Yes Advance Directives: No Mental Health Advance Directive: No Advance Directives on File: No Living Will: No Power of Mixing Machine Tender Cork Rod: No Advance Directives Reason:: Declines as Mental Health Visit. Risk Factors Assessment Acute risk is low given improvement in mood and denial of active SI, improvement in sleep and hopefulness. He does still have brief periods of passive SI in the morning but he feels able to manage these thoughts and is not distressed by them and feels they are reducing and non-impairing. Chronic risk is low given mood disorder but also with many protective factors. Counseled on ways to reduce acute and chronic risk including engaging with outpatient providers, using safety plan if needed, utilizing supports, taking medication, and using coping skills. Modifiable risk factors of active SI and depression were addressed during hospitalization through development of new coping skills, family meeting, safety planning, and medication adjustments. 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) Stable Relationships: Yes Supportive Family: Yes Good Rapport with Provider: Yes Discharge Data Lab Results 02/16/22 02/16/22 02/16/22 10:22 10:22 10:22 WBC RBC Hgb Hct MCV MCH MCHC RDW Std Deviation RDW Coeff of Harshil Plt Count MPV Immature Gran % (Auto) Neut % (Auto) Lymph % (Auto) [place] % (Auto) Eos % (Auto) Baso % (Auto) Neut # (Auto) Lymph # (Auto) [place] # (Auto) Eos # (Auto) Baso # (Auto) Immature Gran # (Auto) Sodium Potassium Chloride Carbon Dioxide Anion Gap BUN Creatinine Est Cr Clr Drug Dosing Est GFR ( Amer) Est GFR (Non-Af Amer) BUN/Creatinine Ratio Glucose Calcium Total Bilirubin AST ALT Alkaline Phosphatase Total Protein Albumin Globulin Albumin/Globulin Ratio TSH Urine Color Yellow Urine Appearance Clear Urine pH 6.0 Ur Specific [place] >= 1.030 Urine Protein Negative Urine Glucose (UA) Negative Urine Ketones Negative Urine Blood Negative Urine Nitrite Negative Urine Bilirubin Negative Urine Urobilinogen Negative Ur Leukocyte Esterase Negative Salicylates Urine Opiates Screen Neg Ur Methadone, Qual Neg Acetaminophen Urine Barbiturates Neg Ur Phencyclidine (PCP) Neg U Amphetamin/Meth Scrn Neg MDMA (Ecstasy) Screen Neg U Benzodiazepines Scrn Neg Ur Cocaine Metabolite Neg U Marijuana (THC) Screen Neg Ethyl Alcohol mg/dL SARS-CoV-2, RNA, NAAT NEGATIVE 02/16/22 02/16/22 02/16/22 11:15 11:15 11:15 WBC 6.83 RBC 4.95 Hgb 15.4 Hct 43.8 MCV 88.5 MCH 31.1 MCHC 35.2 RDW Std Deviation 40.7 RDW Coeff of Harshil 12.7 Plt Count 199 MPV 10.7 H Immature Gran % (Auto) 0.4 Neut % (Auto) 66.0 Lymph % (Auto) 22.3 [place] % (Auto) 9.5 Eos % (Auto) 1.5 Baso % (Auto) 0.3 Neut # (Auto) 4.51 Lymph # (Auto) 1.52 [place] # (Auto) 0.65 H Eos # (Auto) 0.10 Baso # (Auto) 0.02 Immature Gran # (Auto) 0.03 H Sodium 140 Potassium 3.5 Chloride 106 Carbon Dioxide 28 Anion Gap 6 BUN 12 Creatinine 0.86 Est Cr Clr Drug Dosing 137.0 Est GFR ( Amer) 144.7 Est GFR (Non-Af Amer) 124.8 BUN/Creatinine Ratio 14.0 Glucose 82 Calcium 9.0 Total Bilirubin 0.9 AST 14 ALT 14 Alkaline Phosphatase 52 Total Protein 6.6 Albumin 4.2 Globulin 2.4 L Albumin/Globulin Ratio 1.8 TSH 0.940 Urine Color Urine Appearance Urine pH Ur Specific [place] Urine Protein Urine Glucose (UA) Urine Ketones Urine Blood Urine Nitrite Urine Bilirubin Urine Urobilinogen Ur Leukocyte Esterase Salicylates Urine Opiates Screen Ur Methadone, Qual Acetaminophen Urine Barbiturates Ur Phencyclidine (PCP) U Amphetamin/Meth Scrn MDMA (Ecstasy) Screen U Benzodiazepines Scrn Ur Cocaine Metabolite U Marijuana (THC) Screen Ethyl Alcohol mg/dL SARS-CoV-2, RNA, NAAT 02/16/22 02/16/22 11:15 11:15 WBC RBC Hgb Hct MCV MCH MCHC RDW Std Deviation RDW Coeff of Harshil Plt Count MPV Immature Gran % (Auto) Neut % (Auto) Lymph % (Auto) [place] % (Auto) Eos % (Auto) Baso % (Auto) Neut # (Auto) Lymph # (Auto) [place] # (Auto) Eos # (Auto) Baso # (Auto) Immature Gran # (Auto) Sodium Potassium Chloride Carbon Dioxide Anion Gap BUN Creatinine Est Cr Clr Drug Dosing Est GFR ( Amer) Est GFR (Non-Af Amer) BUN/Creatinine Ratio Glucose Calcium Total Bilirubin AST ALT Alkaline Phosphatase Total Protein Albumin Globulin Albumin/Globulin Ratio TSH Urine Color Urine Appearance Urine pH Ur Specific [place] Urine Protein Urine Glucose (UA) Urine Ketones Urine Blood Urine Nitrite Urine Bilirubin Urine Urobilinogen Ur Leukocyte Esterase Salicylates < 3.0 L Urine Opiates Screen Ur Methadone, Qual Acetaminophen < 3 L Urine Barbiturates Ur Phencyclidine (PCP) U Amphetamin/Meth Scrn MDMA (Ecstasy) Screen U Benzodiazepines Scrn Ur Cocaine Metabolite U Marijuana (THC) Screen Ethyl Alcohol mg/dL < 10.0 SARS-CoV-2, RNA, NAAT Hospital Course (1) Severe single episode of major depressive disorder with anxiety: (2) GINA (generalized anxiety disorder): (3) Social anxiety disorder: (4) Suicidal ideation: 02/21/22: Fell asleep faster with mirtazapine and no side effects. Continue mirtazapine and sertraline. 02/20/22: Stop trazodone, start mirtazapine 15mg qhs. c/w sertraline 50mg qd. 02/19/22: Increase trazodone to 100mg qhs. Increase sertraline to 50mg qd. 02/18/22: Increase trazodone to 50mg qhs. Continue sertraline 25mg qd. Family meeting held. 02/17/22: The patient was admitted to the [facility] ([facility] mental [facility] unit) on q15 min checks (behavioral with suicide precautions) for safety. The patient will participate in group, recreational, and milieu therapies and will be offered additional individual and family sessions as clinically appropriate. -sertraline 25mg qd -trazodone 25mg qhs for insomnia Mental Health & Subst Abuse Tx Psychiatrist Name of Psychiatrist: PCP will manage medication Psychiatrist's Date of Appointment with Psychiatrist: 03/10/22 Time of Appointment with Psychiatrist: 4:30pm Psychiatric Appointment Comment: [address] [place] [id number] Therapist Name of Therapist: [facility] CAN SCHEDULE WHEN IN [place] Therapist's Date of Therapist Appointment: 02/20/22 Therapy Appointment Comment: [place] [address] Esthetician Permanent Makeup Artist Name of Esthetician Permanent Makeup Artist: None Post Discharge Appointments Primary Care Physician Name Of Family Doctor: Dr. Herr (will be seeing Tasneem for this visit) Primary Care Date of Appointment with PCP: 03/10/22 Time of Appointment with PCP: 4:30pm Provider Appointment Comment: [address] [place] [id number] Other #1: Name of Aftercare Appointment: Student Care and Advocacy Phone Number of Aftercare Appointment: [phone] Aftercare Appointment Comment: email: #2: Name of Aftercare Appointment: [facility]- Dr. Sultan Garvey Phone Number of Aftercare Appointment: [phone] Date of Aftercare Appointment: 02/23/22 Time of Aftercare Appointment: 9:00am (in person) Contact Information Discharge Discharge Address: [address] [place] [id number] Discharge Plan Discharge Items Patient Disposition: Home - Self-Care Reason For Visit: MDD Discharge Diagnosis: Major Depressive Disorder with anxious distress Activity: Resume your previous activity Non-emergency contact: Primary Care Provider and Therapist Call non-emergency contact if: you have any medication questions and your symptoms worsen Follow-up/Referrals: [place] [Primary Care Provider] - Diet: Regular Addtl Attending Provider Instructions: Optional mobile apps we discussed: -Suicide safety plan -Virtual Hope Box SPECIAL CARE INSTRUCTIONS: 1. Follow through with your scheduled aftercare appointments. If unable to keep an appointment, please call to reschedule. 2. Take your medication only as prescribed. Medication should not be changed or stopped without the approval of your doctor. In the event of worsening symptoms or concerns about side effects, contact your doctor immediately. 3. Utilize new healthy coping skills, anger management skills, and stress management skills learned during your hospitalization. Journal feelings and process them with a support person. Identify stressors or situations that may result in relapse, deterioration or inappropriate behaviors and develop a plan to deal with those issues. 4. If your coping skills are ineffective and you are in crisis, contact your outpatient providers for direction. If unable to reach your providers, please call the [facility] CRISIS LINE AT , go to the [facility] walk-in center at [address] [place] [address] A, [place], or go to the closest Emergency Room. 5. Avoid alcohol and un-prescribed drugs. 6. You have been provided with the Mental Health Advance Directives Pamphlet for your review. 7. Your condition is stable for discharge to outpatient level of care, but recovery is an ongoing process. Ifthoughts to harm yourself or others return, follow the safety plan developed during your stay. Planning for a safe return home includes securing weapons. Our treatment team recommends weaponsbe removed from the home until your outpatient provider reassesses your progress. In rare cases where the items themselvescannot be removed, guns and ammunitionshould be secured separatelyand keys stored by a reliable personoutside of the home. If you were admitted on an involuntary commitment, the police or other legal authorities may be involved in this process. AFTERCARE APPOINTMENTS: * Please call your insurance company prior to your scheduled appointment to confirm your aftercare providers are covered. Take your insurance information to your appointments. WHO TO CALL AND WHEN: Medical Emergencies: For questions or emergencies related to your hospital stay, please contact the Inpatient Behavioral Health Unit at [phone]. A assessment clinician is on-call 24/7 for the Behavioral Health Unit for emergencies At any time you feel your situation is an emergency, you may also call 911 immediately. Pending Studies at Discharge: No Stand-Alone Forms: My [facility] Medications and DC Order Prescriptions: New hydroxyzine HCl 25 mg Tablet 25 mg PO DAILY PRN (Reason: anxiety) 30 Days Qty: 30 RF: 0 mirtazapine 15 mg Tablet 15 mg PO HS 30 Days Qty: 30 RF: 0 sertraline 50 mg Tablet 50 mg PO QAM 30 Days Qty: 30 RF: 0 Discharge Orders: Discharge Order (Routine); Ordered 02/21/22 Ordered By: Jessica Rod/Other Patient Handouts: Journaling for Mental Health, Depression: Tips to Help Yourself, Suicide Warning Signs What To Do Admission Data Admit Date/Time: 02/16/22 13:42 Attending Provider: Jessica Goetz Admit Provider: Shona Moulton Primary Care Provider: [place] Other Interventions: Discharge Summary Assessment (RN) Last Done: 02/21/22 12:23 PSY Interdisciplinary Discharge Planning Last Done: 02/21/22 12:24 Coding Level of Care Code 12538 D/C day mgmt > 30 min Diagnoses Severe single episode of major depressive disorder with anxiety F32.2; F41.8 GINA (generalized anxiety disorder) F41.1 Social anxiety disorder F40.10 Suicidal ideation R45.851 Time Spent (min) 40
== END 2022-02-21 12:37 | disposition home or self-care (01) | DRG 885 ==
LOC: ED 09:57 → 3S 13:39 → SUATTDRO 13:42 → 3S 13:42